=== PATIENT | male | born 1985 | race Hispanic/Latino ===

== ENCOUNTER 2021-11-16 16:34 | Emergency (ER) | payer SELFPAY ==
[2021-11-16 17:21] VITALS: BP 152/85
--- NOTE | 2021-11-16 17:47 | XRay Report ---
XR chest routine 2V INDICATION / CLINICAL INFORMATION: COUGH. COMPARISON: None available. FINDINGS: SUPPORT DEVICES: None. HEART /PULMONARY VASCULATURE: No significant abnormality. LUNGS / PLEURA: No significant pulmonary or pleural abnormality. No pneumothorax. ADDITIONAL FINDINGS: No significant additional findings. IMPRESSION: 1. No acute findings. Signer Name: Ayo Salmon MD Signed: 11/16/2021 5:43 PM Workstation Name: [id number]
== END 2021-11-17 01:30 | disposition left against medical advice (07) ==
LOC: ED 16:34
DX: R50.9 Fever, unspecified (principal); Z53.21 Procedure and treatment not carried out due to patient leaving prior to being seen by health care provider
CPT/HCPCS: 71046